=== PATIENT | male | born 1990 | race Caucasian/White ===

== ENCOUNTER 2019-08-17 16:52 | Inpatient (IN) | payer OTHER ==
[~2019-08-17] VITALS: Ht 182.9 cm; Wt 127.5 kg
[2019-08-17] MEDS ORDERED: LORAZEPAM 2 MG/ML 1 ML VIAL ONE ×2 (17:22→18:36)
[2019-08-17] MEDS ORDERED: SODIUM CHLORIDE 3% 500 ML IV ONE (17:30)
[2019-08-17] MEDS ORDERED: ONDANSETRON HCL 4 MG/2 ML VIAL ONE ×2 (17:39→21:31)
[2019-08-17] MEDS ORDERED: PROPOFOL 1000 MG/100 ML 100 ML IV ONE ×3 (17:40→23:45)
[2019-08-17 17:48] VITALS: PULSE 157
[2019-08-17 18:30] VITALS: PULSE 142
[2019-08-17] MEDS ORDERED: ZOSYN 3.375GM+NS 50ML 50 ML IV ONE (18:49)
[2019-08-17] MEDS ORDERED: ONDANSETRON HCL 4 MG/2 ML VIAL IV PRN (19:30)
[2019-08-17] MEDS ORDERED: MIDAZOLAM 50MG-0.9% NS 50ML 50 ML IV SCH (19:45)
[2019-08-17] MEDS: SODIUM CHLORIDE 0.9% 1000ML 1,000 ML IV SCH (19:45)
[2019-08-17] MEDS: ZOSYN 3.375GM+NS 50ML 50 ML IV SCH (20:00)
[2019-08-17 20:02] VITALS: PULSE 132
[2019-08-17] MEDS ORDERED: FENTANYL 1000MCG+NS 100ML 100 ML ONE (20:25)
[2019-08-17 21:24] VITALS: PULSE 114
[2019-08-18] VITALS (57 sets, daily range): BP systolic 76–139; BP diastolic 44–81; PULSE 57–85; RESP 11–35; TEMP 97.5–99.5
[2019-08-18] MEDS ORDERED: SODIUM CHLORIDE 0.9% 500ML 500 ML IV SCH (00:15)
[2019-08-18] MEDS: ASPIRIN 325MG EC TAB 325 MG TABLET.DR PO SCH (00:15)
[2019-08-18] MEDS ORDERED: SODIUM CHLORIDE 0.9% 500ML 500 ML IV ONE (00:45)
[2019-08-18] MEDS ORDERED: SODIUM CHLORIDE 0.9% 1000ML 1,000 ML IV ONE (00:46)
[2019-08-18] MEDS ORDERED: ASPIRIN 300 MG SUPPOSITORY PR ONE (01:34)
[2019-08-18] MEDS ORDERED: PROPOFOL 1000 MG/100 ML 100 ML IV ONE ×3 (02:45→10:40)
--- NOTE | 2019-08-18 02:45 | NUR ---
ADMISSION PATIENT ARRIVED VIA STRETCHER TO ROOM 218. TRANSFERRED TO BED WITH ASSIST X4. CONNECTED TO VENTILATOR BY RT. PATIENT CURRENTLY INFUSING PROPOFOL, FENTANYL, AND VERSED. AFEBRILE. SINUS HR 60-70'S. SBP 90'S. PATIENT UNRESPONSIVE. NO RESPONSE TO PAINFUL STIMULI. BREATHING SYNCHRONOUS WITH VENTILATOR. NO SIGNS OR SYMPTOMS OF PAIN NOTED.
--- NOTE | 2019-08-18 05:00 | NUR ---
SEDATION PATIENT SEDATION GRADUALLY DECREASED. PATIENT MOVES ALL 4 EXTREMITIES. RESPONDS TO NOXIOUS STIMULI. DOES NOT FOLLOW COMMANDS.
[2019-08-18] MEDS: FAMOTIDINE/PF 20 MG/2 ML VIAL IV SCH ×2 (05:48→19:56)
[2019-08-18] MEDS: SODIUM CHLORIDE 0.9% 1000ML 1,000 ML IV SCH (05:50)
[2019-08-18] MEDS: ZOSYN 3.375GM+NS 50ML 50 ML IV SCH ×3 (05:50→19:54)
--- NOTE | 2019-08-18 07:55 | NUR ---
CONSULT CRITICAL CARE JIGGER ARTISAN DR GALINDO CALLED. NOTIFIED OF CONSULT AND UPDATED ON PATIENT CONDITION. NO NEW ORDERS RECEIVED.
--- NOTE | 2019-08-18 08:42 | NUR ---
ADMISSION ADMISSION DATABASE COMPLETED BY PHONE WITH FATHER CLARIBEL ALONZO. . FATHER WILL BE PRIMARY DECISION MAKER FOR PATIENT. PATIENT IS NEVER AND HAS NO CHILDREN. SECONDARY CONTACT PAWAN HERNANDEZ - . STATES THAT IS UNSURE IF SON HAS HYPERTENSION. PATIENT STARTED NEW ADDERAL PRESCRIPTION THIS Thursday08/12/19. EVERYDAY SMOKER. CURRENT MARIJUANA USE. REGULAR ALCOHOL INTAKE EST EVERY OTHER DAY, BEER.
[2019-08-18] MEDS: ASPIRIN 81 MG EC TAB PO SCH (08:45)
[2019-08-18] MEDS: ENOXAPARIN SODIUM 120 MG/0.8ML SQ SCH ×2 (08:46→19:56)
[2019-08-18] MEDS: LACTATED RINGERS 1000ML 1,000 ML IV SCH ×2 (09:41→17:33)
[2019-08-18] MEDS ORDERED: COMPOUND IV MISC 1 EACH IVSOLN MISC PRN (11:45)
--- NOTE | 2019-08-18 14:42 | NUR ---
RD NOTIFICATION - TUBE FEEDING Pt Intubated, sedated, NGT in place. Sepsis. Recommend continuous tube feeding Vital AF 1.2 initiated at 20mls/hr for 5 hours Increase rate as tolerated by 5ml every 5 hours to goal Goal rate: 55mls/hr (1584kcal, 99gm protein). Recommendations faxed to 2nd floor Pod C ([phone]). Pt admitted with Syncope, heat stroke, resp. failure. Positive amphetamines and marijuana per EMR. Obesity Class II. RD to continue to monitor. Please notify as additional concerns arise. Thank you. Addendum: 08/18/19 at [address] Amended: Links added.
[2019-08-18] MEDS: FENTANYL 1000MCG+NS 100ML IV.SOLN IV SCH ×2 (15:01→19:54)
--- NOTE | 2019-08-18 15:43 | NUR ---
TAYLA PLAN PATIENT COVID UNIT. VENTED CONDITION GUARDED. [facility] WILL CONTINUE TO FOLLOW. Addendum: 08/18/19 at 1544 by DANIELA SMITH RN CM Amended: Links added.
[2019-08-18] MEDS: DEXMEDETOMIDINE HCL 400 MCG in SODIUM CHLORIDE 0.9% 100 ML IV SCH (18:10)
[2019-08-18] MEDS: LEVETIRACETAM 500 MG in SODIUM CHLORIDE 0.9% 100 ML IV SCH (19:54)
[2019-08-19] VITALS (43 sets, daily range): BP systolic 100–138; BP diastolic 47–83; PULSE 52–90; RESP 10–62; TEMP 98.2–102.3
[2019-08-19] MEDS: ASPIRIN 325MG EC TAB 325 MG TABLET.DR PO SCH (00:15)
[2019-08-19] MEDS ORDERED: ACETAMINOPHEN 650 MG SUPPOSITORY RC PRN (01:00)
[2019-08-19] MEDS ORDERED: ACETAMINOPHEN 650 MG SUPPOSITORY RC ONE (01:14)
[2019-08-19] MEDS: LACTATED RINGERS 1000ML 1,000 ML IV SCH ×3 (01:15→17:00)
[2019-08-19] MEDS: DEXMEDETOMIDINE HCL 400 MCG in SODIUM CHLORIDE 0.9% 100 ML IV SCH ×2 (01:34→09:50)
[2019-08-19] MEDS: ZOSYN 3.375GM+NS 50ML 50 ML IV SCH ×3 (04:28→21:01)
[2019-08-19] MEDS: FENTANYL 1000MCG+NS 100ML IV.SOLN IV SCH ×2 (04:39→08:26)
[2019-08-19] MEDS: ENOXAPARIN SODIUM 120 MG/0.8ML SQ SCH ×2 (08:26→21:00)
[2019-08-19] MEDS: ASPIRIN 81 MG EC TAB PO SCH (08:26)
[2019-08-19] MEDS: LEVETIRACETAM 500 MG in SODIUM CHLORIDE 0.9% 100 ML IV SCH ×2 (08:32→21:01)
--- NOTE | 2019-08-19 10:11 | NUR ---
CHART CHECK COMPLETED Pt IS A 29 Y.O. MALE ADMITTED SECONDARY TO SYNCOPE, HEAT STROKE, RESPIRATORY FAILURE, SEPSIS. Pt HAS A PAST MEDICAL HISTORY SIGNIFICANT FOR HYPERTENSION AND ATTENTION DEFICIT DISORDER. Pt IMMEDIATELY INTUBATED UPON ARRIVAL. PLEASE REQUEST A FORMAL DYSPHAGIA EVALUATION 24 HOURS POST EXTUBATION. Addendum: 08/19/19 at 1014 by KIERAN TRAORE, [facility] Amended: Links added.
--- NOTE | 2019-08-19 11:17 | NUR ---
TAYLA PLAN PATIENT VENTED. [facility] WILL CONTINUE TO FOLLOW. Addendum: 08/19/19 at 1118 by DANIELA SMITH RN CM Amended: Links added.
--- NOTE | 2019-08-19 13:37 | NUR ---
1100 DR. Flannery gave this nurse v/o to start pt on cpap trial to prepare for extubation and turn off all sedation. RT notified to change pt to CPAP mode on ventilator. 1135 pt placed on cpap at this time. all sedation medication turned off. 1330. RT at bedside to perform tests for cpap trial 1335 Dr. Flannery notified of results of cpap trial. t/o ok to extubate. RT at bedside to extubate pt.
--- NOTE | 2019-08-19 13:53 | NUR ---
extubation pt extubated at 1340 by RT. pt tolerated extubation w/no s/s distress noted. pt placed on 3L NC. will cont to monitor.
[2019-08-19] MEDS ORDERED: PHARMACY COMMUNICATION MISC SCH (16:45)
[2019-08-19] MEDS ORDERED: ACETYLCYSTEINE IV ONE (18:00)
[2019-08-19] MEDS ORDERED: DEXTROSE 5% IV ONE (18:00)
[2019-08-19] MEDS ORDERED: WATER IV ONE (18:00)
[2019-08-19] MEDS ORDERED: DEXTROSE 5% IV SCH (20:30)
[2019-08-19] MEDS ORDERED: WATER IV SCH (20:30)
[2019-08-19] MEDS ORDERED: ACETYLCYSTEINE IV SCH (20:30)
[2019-08-19] MEDS: FAMOTIDINE/PF 20 MG/2 ML VIAL IV SCH (21:02)
[2019-08-19] MEDS: DOXYCYCLINE HYCLATE 100 MG TABLET PO SCH (21:02)
[2019-08-20] VITALS (26 sets, daily range): BP systolic 106–155; BP diastolic 62–89; PULSE 49–84; RESP 14–42; TEMP 97.5–98.7
[2019-08-20] MEDS: ASPIRIN 325MG EC TAB 325 MG TABLET.DR PO SCH ×2 (00:15→21:24)
[2019-08-20] MEDS ORDERED: 1/2 NORMAL SALINE IV SCH (00:30)
[2019-08-20] MEDS ORDERED: ACETYLCYSTEINE IV SCH (00:30)
[2019-08-20] MEDS: LACTATED RINGERS 1000ML 1,000 ML IV SCH ×4 (01:00→21:25)
[2019-08-20] MEDS: DOXYCYCLINE HYCLATE 100 MG TABLET PO SCH ×2 (08:16→20:27)
[2019-08-20] MEDS: ASPIRIN 81 MG EC TAB PO SCH (08:16)
[2019-08-20] MEDS: LEVETIRACETAM 500 MG in SODIUM CHLORIDE 0.9% 100 ML IV SCH ×2 (11:48→21:23)
[2019-08-20] MEDS: ZOSYN 3.375GM+NS 50ML 50 ML IV SCH ×3 (11:48→20:15)
--- NOTE | 2019-08-20 19:30 | NUR ---
ASSESSMENT PT AAOX3, PLEASANT, COOPERATIVE AND FOLLOWS ALL COMMANDS, C/O ANXIETY. PERRLA, ON ROOM AIR, VOIDS PER URINAL, SKIN INTACT. ASSESSMENT COMPLETED, SEE FLOW SHEET.
--- NOTE | 2019-08-20 21:00 | NUR ---
NARGIS STOUT ZUMBA INSTRUCTOR PT REQUESTING SOMETHING FOR ANXIETY, CALL PLACED TO [facility]OS[facility] INSTRUCTOR, RETURN CALL PENDING
[2019-08-20] MEDS ORDERED: ALPRAZOLAM 0.5 MG TABLET ONE (21:19)
--- NOTE | 2019-08-20 21:20 | NUR ---
NARGIS STOUT NP DIRECTOR OF INTERCOLLEGIATE ATHLETICS MADE AWARE OF PT COMPLAINTS OF ANXIETY, SEE ORDERS FOR XANAX.
[2019-08-20] MEDS: FAMOTIDINE/PF 20 MG/2 ML VIAL IV SCH (21:23)
[2019-08-20] MEDS ORDERED: ALPRAZOLAM 0.5 MG TABLET PO PRN (21:30)
--- NOTE | 2019-08-20 23:00 | NUR ---
ASSESSMENT PT REMAINS PLEASANT AND COOPERATIVE AND FOLLOWS ALL COMMANDS. PT STATES THE "ANXIETY IS BETTER". PERRLA, ON ROOM AIR, VOIDS PER URINAL, SKIN INTACT. ASSESSMENT COMPLETED, SEE FLOW SHEET.
[2019-08-21] VITALS (18 sets, daily range): BP systolic 103–152; BP diastolic 50–88; PULSE 44–81; RESP 13–31; TEMP 97.4–97.9
[2019-08-21] MEDS: ZOSYN 3.375GM+NS 50ML 50 ML IV SCH (04:05)
[2019-08-21] MEDS: LACTATED RINGERS 1000ML 1,000 ML IV SCH (09:00)
[2019-08-21] MEDS: DOXYCYCLINE HYCLATE 100 MG TABLET PO SCH (09:29)
[2019-08-21] MEDS: ASPIRIN 81 MG EC TAB PO SCH (09:29)
[2019-08-21] MEDS: LEVETIRACETAM 500 MG in SODIUM CHLORIDE 0.9% 100 ML IV SCH (09:43)
--- NOTE | 2019-08-21 20:15 | NUR ---
DISCHARGE VITAL SIGNS: 97.8 (O) 56-20-96%-122/66. PT AAOX4, DENIES ANY PAIN. NO DISTRESS NOTED, PLEASANT, COOPERATIVE. DISCHARGE INSTRUCTIONS GIVEN AND REVIEWED, PT VERBALIZED UNDERSTANDING OF SAME, COPIES IN CHART. PT LEFT FLOOR VIA WHEEL CHAIR AT 2011.
== END 2019-08-21 20:30 | disposition home or self-care (01) | DRG 871 ==
LOC: EDH 16:52 → EDBD 16:53 → EDHIP 16:53 → 2CH 08-18 02:24
PROVIDERS: ADMIT Internal Medicine; ATTEND Internal Medicine
PROC: 5A1935Z Respiratory Ventilation, Less than 24 Consecutive Hours (ICD-10-PCS; principal; 2019-08-18)
PROC: 0BH17EZ Insertion of Endotracheal Airway into Trachea, Via Natural or Artificial Opening (ICD-10-PCS; 2019-08-18)
DX: A41.9 Sepsis, unspecified organism (principal); J18.9 Pneumonia, unspecified organism; J96.01 Acute respiratory failure with hypoxia; K72.00 Acute and subacute hepatic failure without coma; T67.01XA Heatstroke and sunstroke, initial encounter; N17.9 Acute kidney failure, unspecified; M62.82 Rhabdomyolysis; I24.8 Other forms of acute ischemic heart disease; Z20.828 Contact with and (suspected) exposure to other viral communicable diseases; I10 Essential (primary) hypertension; D69.6 Thrombocytopenia, unspecified; E86.0 Dehydration; F90.9 Attention-deficit hyperactivity disorder, unspecified type; E66.9 Obesity, unspecified; Z68.38 Body mass index [BMI] 38.0-38.9, adult; X30.XXXA Exposure to excessive natural heat, initial encounter; X50.0XXA Overexertion from strenuous movement or load, initial encounter